=== PATIENT | female | born 1960 | race Caucasian/White ===

== ENCOUNTER 2016-07-14 08:18 | Day surgery (SDC) | payer OTHER ==
[~2016-07-14] VITALS: Ht 167.6 cm; Wt 97.5 kg
[~2016-07-14 08:18] MED LIST: MELO-259 PO; Sodium Chloride LOK Flush 10 mL Syringe IV PRN; fentaNYL-PF 50 mCg/mL 2 mL Inj IVPUSH PRN
[2016-07-14 08:54] VITALS: BP 115/82; PULSE 66; RESP 17; O2SAT 95
[2016-07-14] MEDS: 0.9% Sodium Chloride 1,000 ML IV SCH ×2 (08:57→10:17)
--- NOTE | 2016-07-14 09:29 | PCM.ENDCOL ---
Colonoscopy Physician Prakash Willard MD Pre Procedure Diagnosis: Screening and family history of colon polyps Post Procedure Dx & Findings: Diverticuli and hemorrhoids Procedure Colonoscopy PROCEDURE IN DETAIL: Prep adequate Withdrawal time 8 minutes After unremarkable rectal examination the Olympus video colonoscope was inserted patient's anal canal and was advanced to cecum. Landmarks were identified including the ileocecal valve and appendiceal orifice. Scope was withdrawn systematically. Visualized colonic mucosa showed healthy shiny mucosa with normal healthy-appearing vasculature. In the sigmoid colon, there were several small to medium diverticuli. In the rectum retroflexion was done which showed hemorrhoids. Anal canal was inspected carefully on the way out and hemorrhoids noted. Impression Diverticuli Family history of colon polyps Hemorrhoids Recommendation Repeat colonoscopy in 5 years Presedation Assessment Risks and Benefits Informed consent was obtained from the patient after all risks and benefits including but not limited to drug reaction, infection, pain, bleeding, perforation, as well as alternatives were discussed. Patient monitoring Continuous pulse oximetry, cardiac monitoring, blood pressure monitoring, IV access, and oxygen at 2L per nasal cannula. Periprocedural Fentanyl: Fentanyl 100mcg Incrementally Midazolam: Midazolam 5mg Incrementally Complications There were no periprocedural complications identified. Post Procedure Plan Post Procedure Recommendations 1. Restrict activities today. 2. Resume normal activities in the morning. 3. Resume medications. 4. Patient informed of normal post procedure side effects as bloating, drowsiness, blood streaking in the stool. 5. average risk CRCS. If colon polyps come back as: -Hyperplastic- can repeat colonoscopy in 10 years -Tubular adenoma- repeat colonoscopy in 5 years -Tubulovillous/villous adenoma- repeat colonoscopy in 3 years -If any dysplasia- return to clinic as soon as possible 6. Please don't hesitate to call me with any questions. Prakash Willard MD July 14, 2016 09:29
[2016-07-14 09:32] VITALS: BP 111/72; PULSE 60; RESP 16; O2SAT 95
[2016-07-14 09:51] VITALS: BP 110/72; PULSE 77; RESP 16; O2SAT 98
== END 2016-07-14 23:59 | disposition home or self-care (01) ==
LOC: END 08:18
PROVIDERS: ATTEND Internal Medicine
DX: Z12.11 Encounter for screening for malignant neoplasm of colon (principal); Z80.0 Family history of malignant neoplasm of digestive organs; K57.30 Diverticulosis of large intestine without perforation or abscess without bleeding; K64.9 Unspecified hemorrhoids; M17.11 Unilateral primary osteoarthritis, right knee; E66.8 Other obesity; Z68.38 Body mass index [BMI] 38.0-38.9, adult
CPT/HCPCS: 99153; G0105; G0500; J7030